=== PATIENT | male | born 1995 | race Caucasian/White ===

== ENCOUNTER 2016-07-25 21:24 | Emergency (ER) | payer OTHER | END 2016-07-26 01:20 | disposition home or self-care (01) | LOC: ER1 21:24 | DX: N50.82 Scrotal pain (principal) | CPT/HCPCS: 81001; 99284 ==

== ENCOUNTER → 2016-07-27 | Outpatient (CLI) | payer OTHER | LOC: US 12:30 | DX: N50.819 Testicular pain, unspecified (principal); N50.3 Cyst of epididymis | CPT/HCPCS: 76870 ==